=== PATIENT | male | born 1970 | race Caucasian/White ===

== ENCOUNTER 2017-07-17 11:23 | Emergency (ER) | payer SELFPAY ==
[2017-07-17 11:37] VITALS: BP 144/86
[2017-07-17] MEDS ORDERED: Naproxen TAB* 250 MG PO ONE (12:09)
--- NOTE | 2017-07-17 12:21 | UC ---
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 Onset of pain yesterday no bowel or bladder dysfunction hx HNP about 10 yrs ago - History of Current Complaint Chief Complaint: UCBackPain Stated Complaint: LOWER BACK PAIN Time Seen by Provider: 07/17/17 11:55 Hx Obtained From: Patient Onset/Duration: Sudden Onset, Lasting Hours Timing: Constant Severity Initially: Mild Severity Currently: Severe Pain Intensity: 7 Pain Scale Used: 0-10 Numeric Back Pain: Is Discrete @ - lower back, Radiates To - left post thigh Character: Aching, Throbbing, Spasmodic Alleviating: Nothing Associated Signs And Symptoms: Positive: Negative Related History: Similar Episode Dx As - sciatica - Allergies/Home Medications Allergies/Adverse Reactions: Allergies Allergy/AdvReac Type Severity Reaction Status Date / Time No Known Allergies Allergy Verified 07/17/17 11:29 PMH/Surg Hx/FS Hx/Imm Hx Previously Healthy: Yes - Surgical History Surgical History: Yes Surgery Procedure, Year, and Place: COMPOUND FRACTURES TIB/FIB, WITH METAL PLATE , SCREWS, [facility]. - Family History Known Family History: Positive: Hypertension - Social History Alcohol Use: None Substance Use Type: None Smoking Status (MU): Heavy Every Day Tobacco Smoker Type: Cigarettes Amount Used/How Often: 1 PPD Household Exposure Type: Cigarettes Review of Systems Constitutional: Negative Skin: Negative Eyes: Negative ENT: Negative Respiratory: Negative Cardiovascular: Negative Gastrointestinal: Negative Genitourinary: Negative Motor: Negative Neurovascular: Negative Musculoskeletal: Arthralgia, Myalgia Neurological: Negative Psychological: Negative Is Patient Immunocompromised?: No All Other Systems Reviewed And Are Negative: Yes Physical Exam Triage Information Reviewed: Yes Appearance: Well-Appearing, No Pain Distress, Well-Nourished Vital Signs: Initial Vital Signs Temp 99.1 F 07/17/17 11:30 Pulse 95 07/17/17 11:30 Resp 18 07/17/17 11:30 BP 144/86 07/17/17 11:30 Pulse Ox 99 07/17/17 11:30 Vital Signs Reviewed: Yes Eyes: Positive: Conjunctiva Clear ENT: Positive: Hearing grossly normal. Negative: Nasal congestion, Nasal drainage, Trismus, Muffled/hoarse voice Dental: Negative: Dental Fracture @, Abscess @, Cellulitis @ Neck: Positive: Supple, Nontender, No Lymphadenopathy Respiratory: Positive: Lungs clear, Normal breath sounds, No respiratory distress Cardiovascular: Positive: RRR, No Murmur Musculoskeletal: Positive: Other: - (+) Left SLR DTRs symmetrical Neurological Exam: Normal Neurological: Positive: Alert Psychological Exam: Normal Psychological: Positive: Normal Response To Family Skin Exam: Normal Back Pain Course/Dx - Differential Dx/Diagnosis Provider Diagnoses: acute sciatica Discharge - Discharge Plan Condition: Stable Disposition: HOME Prescriptions: Cyclobenzaprine TAB* [Flexeril TAB*] 5 mg PO TID PRN #12 tab PRN Reason: Spasms Famotidine TAB* [Pepcid 20 MG TAB*] 20 mg PO DAILY #14 tab Methylprednisolone [Medrol Dosepak 4 MG*] 0 mg PO .SEE ALEXANDRO INSTRUCTION #1 tab Naproxen Sodium [Naproxen Sodium 500 MG TAB] 500 mg PO BID PRN #30 tab PRN Reason: Pain Patient Education Materials: Sciatica (ED) Forms: *Work Release Referrals: Kalin Stinson MD [Medical Doctor] - (call for an appt if not better in 1 week) No Primary Care Phys,NOPCP [Primary Care Provider] -
== END 2017-07-17 12:22 | disposition home or self-care (01) ==
LOC: UCCORT 11:23
DX: M54.30 Sciatica, unspecified side (principal); Z72.0 Tobacco use
CPT/HCPCS: 99202; A9270-GY; G0463